=== PATIENT | female | born 1980 | race Caucasian/White ===

== ENCOUNTER 2023-11-04 00:36 | Emergency (ER) | payer MEDICAID ==
[~2023-11-04] VITALS: Ht 165.1 cm; Wt 87.0 kg
[2023-11-04 00:42] VITALS: BP 173/114; PULSE 110; RESP 18; TEMP 98.5; O2SAT 98
[2023-11-04 01:54] LABS: CLARITY URINE CLEAR (CLEAR); COLOR URINE YELLOW (YELLOW); GLUCOSE URINE NEGATIVE (NEGATIVE); KETONES URINE NEGATIVE (NEGATIVE); LEUKOCYTE ESTERASE URINE NEGATIVE (NEGATIVE); NITRITE URINE NEGATIVE (NEGATIVE); OCCULT BLOOD URINE NEGATIVE (NEGATIVE); PH URINE 5.5 (4.5-8.0); PROTEIN URINE NEGATIVE (NEGATIVE); SPECIFIC GRAVITY URINE 1.023 (1.005-1.030); UROBILINOGEN URINE 0.2 E.U./dL (0.2-1.0)
[2023-11-04] MEDS ORDERED: PYR200 MT (02:59)
== END 2023-11-04 03:57 | disposition home or self-care (01) ==
LOC: ER 00:47
DX: R30.9 Painful micturition, unspecified (principal); Z87.440 Personal history of urinary (tract) infections
CPT/HCPCS: 81003; 81025; 99283

== ENCOUNTER 2024-06-26 15:58 | Emergency (ER) | payer OTHER ==
[~2024-06-26] VITALS: Ht 170.2 cm; Wt 72.0 kg
[~2024-06-26 15:58] MED LIST: PYR200 MT
[2024-06-26 16:01] VITALS: BP 185/90; PULSE 105; RESP 16; TEMP 36.6; O2SAT 97
[2024-06-26] MEDS ORDERED: ALBU18HF2 IH (16:05)
== END 2024-06-26 18:24 | disposition left against medical advice (07) ==
LOC: ER 15:58
DX: M79.604 Pain in right leg (principal); J45.909 Unspecified asthma, uncomplicated; Z53.21 Procedure and treatment not carried out due to patient leaving prior to being seen by health care provider